=== PATIENT | female | born 1970 ===

== ENCOUNTER 2021-08-29 10:30 | Inpatient (IN) | payer OTHER ==
[~2021-08-29] VITALS: Ht 154.9 cm; Wt 56.7 kg
[2021-08-29] MEDS ORDERED: SYNTH PO (12:53)
[2021-08-29] MEDS ORDERED: PROMETRIUM200 MG PO (12:54)
[2021-08-29] MEDS ORDERED: SIMVASTA PO (12:54)
[2021-08-29] MEDS ORDERED: VITAMIN C PO (12:55)
[2021-08-29] MEDS ORDERED: VITAMIN D PO (12:55)
[2021-08-29] MEDS ORDERED: PROBIOTI PO (12:55)
[2021-08-30] MEDS ORDERED: SIMVASTATIN20 MG (11:01)
[2021-08-30] MEDS ORDERED: MESALAMINE1.2 GM (11:01)
[2021-08-30] MEDS ORDERED: SYNTHROID88 MCG (11:01)
[2021-08-30] MEDS ORDERED: VITAMIN D310 MC4 (11:02)
[2021-08-30] MEDS ORDERED: VITAMIN C100 MG (11:02)
[2021-08-30] MEDS ORDERED: PROBIOTIC250 MG (11:03)
== END 2021-09-01 15:30 | disposition home or self-care (01) | DRG 743 ==
LOC: O/R 08-30 05:30 → SURH 08-30 10:30 → OB/GYN 08-30 12:12
PROVIDERS: ADMIT Specialist; ATTEND Specialist
PROC: 0UT70ZZ Resection of Bilateral Fallopian Tubes, Open Approach (ICD-10-PCS; 2021-08-30)
PROC: 0UT20ZZ Resection of Bilateral Ovaries, Open Approach (ICD-10-PCS; 2021-08-30)
PROC: 0DNW0ZZ Release Peritoneum, Open Approach (ICD-10-PCS; 2021-08-30)
PROC: 0TN70ZZ Release Left Ureter, Open Approach (ICD-10-PCS; 2021-08-30)
PROC: 0TN60ZZ Release Right Ureter, Open Approach (ICD-10-PCS; 2021-08-30)
PROC: 0UT90ZZ Resection of Uterus, Open Approach (ICD-10-PCS; principal; 2021-08-30 11:45)
DX: D25.1 Intramural leiomyoma of uterus (principal); D25.2 Subserosal leiomyoma of uterus; N72 Inflammatory disease of cervix uteri; Z20.822 Contact with and (suspected) exposure to COVID-19